=== PATIENT | female | born 1975 | race Caucasian/White ===

== ENCOUNTER 2016-11-13 06:09 | Day surgery (SDC) | payer BC ==
[~2016-11-13 06:09] MED LIST: BUSPAR15 M1 PO; HALCION0.25 MG PO; IBU800 PO; MELA3 PO; NORCO1 TA1 PO; PEP20 PO
== END 2016-11-13 09:34 | disposition home or self-care (01) ==
LOC: SDC 06:09
PROVIDERS: Orthopaedic Surgery
PROC: 3E0R3BZ Introduction of Anesthetic Agent into Spinal Canal, Percutaneous Approach (ICD-10-PCS; 2016-11-13)
PROC: 3E0R33Z Introduction of Anti-inflammatory into Spinal Canal, Percutaneous Approach (ICD-10-PCS; principal; 2016-11-13 09:00)
DX: M54.16 Radiculopathy, lumbar region (principal); M54.5 Low back pain; K31.84 Gastroparesis; K58.9 Irritable bowel syndrome, unspecified; K21.9 Gastro-esophageal reflux disease without esophagitis; K64.9 Unspecified hemorrhoids; Z98.890 Other specified postprocedural states; Z87.891 Personal history of nicotine dependence; Z90.89 Acquired absence of other organs; Z79.899 Other long term (current) drug therapy; Z79.891 Long term (current) use of opiate analgesic
CPT/HCPCS: 84703; J1040; J2250; J3010; Q9967